=== PATIENT | female | born 1960 | race Caucasian/White ===

== ENCOUNTER 2017-04-11 05:50 | Day surgery (SDC) | payer BC ==
[~2017-04-11] VITALS: Ht 152.4 cm; Wt 81.2 kg
[2017-04-11] MEDS ORDERED: KETOROLAC TROMETHAMINE 30 MG VIAL IVP ONE (05:51)
[2017-04-11] MEDS ORDERED: METOCLOPRAMIDE HCL 10 MG/2 ML VIAL IVP ONE (05:51)
[2017-04-11] MEDS ORDERED: fentaNYL CITRATE/PF 100 MCG/2 ML AMP IVP ONE (05:51)
[2017-04-11] MEDS ORDERED: PROPOFOL 200MG/ 20ML VIAL (DIPRIVAN) IV ONE (05:51)
[2017-04-11] MEDS ORDERED: ROCURONIUM BROMIDE 10 MG/ML (ZEMURON) IV ONE (05:51)
[2017-04-11] MEDS ORDERED: LR 1,000 ML IV.SOLN IV ONE (05:51)
[2017-04-11] MEDS ORDERED: DEXAMETHASONE SOD PHOSPHATE 4 MG/ML VIAL IVP ONE (05:51)
[2017-04-11] MEDS ORDERED: CEFAZOLIN 2 GM IVPB PREMIX 50 ML IV ONE (05:51)
[2017-04-11] MEDS ORDERED: MIDAZOLAM HCL 5 MG/ML VIAL (VERSED) IV ONE (05:51)
[2017-04-11] MEDS ORDERED: SEVOFLURANE 15 MIN GAS INH ONE (05:51)
[2017-04-11 06:34] VITALS: O2SAT 96
[2017-04-11] MEDS ORDERED: LR 1,000 ML IV ONE (08:20)
[2017-04-11] MEDS ORDERED: ePHEDrine sulfate 50 MG/ML VIAL IVP PRN (08:30)
[2017-04-11] MEDS ORDERED: NALBUPHINE HCL 10 MG/ML AMP IVP PRN (08:30)
[2017-04-11] MEDS ORDERED: ONDANSETRON HCL 4 MG/2 ML VIAL IVP PRN ×3 (08:30→09:45)
[2017-04-11] MEDS ORDERED: NALOXONE HCL 0.4 MG/ML AMP (NARCAN) IVP PRN (08:30)
[2017-04-11] MEDS ORDERED: DIPHENHYDRAMINE INJ 50 MG/ML VIAL IVP PRN (08:30)
[2017-04-11] MEDS ORDERED: fentaNYL CITRATE/PF 100 MCG/2 ML AMP IVP PRN (08:30)
[2017-04-11] MEDS ORDERED: PROMETHAZINE HCL 25 MG/ML AMP IM PRN (09:45)
[2017-04-11] MEDS ORDERED: HYDROmorphone 2 MG TAB PO PRN (09:45)
[2017-04-11] MEDS ORDERED: OXYCODONE/ACETAMINOPHEN 5-325 TABLET PO PRN (09:45)
[2017-04-11] MEDS ORDERED: fentaNYL CITRATE/PF 100 MCG/2 ML AMP ONE (10:07)
[2017-04-11] MEDS ORDERED: OXYCODONE/ACETAMINOPHEN 5-325 TABLET ONE (11:10)
[2017-04-11 13:24] VITALS: BP 125/62; PULSE 65; RESP 14
== END 2017-04-11 12:50 | disposition home or self-care (01) ==
LOC: SDS 05:50 → SMU 05:50 → SDS 12:50
PROVIDERS: ATTEND Obstetrics & Gynecology
DX: D25.9 Leiomyoma of uterus, unspecified (principal); D27.1 Benign neoplasm of left ovary; I10 Essential (primary) hypertension; M19.90 Unspecified osteoarthritis, unspecified site; Z79.899 Other long term (current) drug therapy; Z80.3 Family history of malignant neoplasm of breast; E66.9 Obesity, unspecified; E66.3 Overweight
CPT/HCPCS: 36415; 57000; 58571; 86886; 86900; 86901; 88307; J0690; J1100; J1885; J2250; J2704; J2765; J3010; J7120; 88305; E0190